=== PATIENT | male | born 1975 | race Caucasian/White ===

== ENCOUNTER 2019-06-07 10:21 | Emergency (ER) | payer OTHER ==
[2019-06-07] MEDS ORDERED: Ondansetron 4 MG/2 ML SDV IVPUSH ONE (12:43)
[2019-06-07] MEDS ORDERED: Sodium Chloride 0.9% 10 ML Syringe FLUSH PRN (12:43)
[2019-06-07] MEDS ORDERED: Sodium Chloride 0.9% 1,000 ML IV SCH (12:45)
[2019-06-07] MEDS ORDERED: Ketorolac 30 MG/ML SDV IVPUSH ONE (12:46)
[2019-06-07] MEDS ORDERED: HYDROmorphone 1 MG/ML Syringe IVPUSH ONE (12:46)
--- NOTE | 2019-06-07 14:00 | CT ---
CT abdomen and pelvis Technique: Multiple axial sections were obtained from above the dome of the diaphragm inferiorly through the pubic symphysis. Intravenous and oral contrast not utilized. Study has been performed as a ureteral stone protocol. Comparison: No prior abdominal imaging is available. Findings: Right kidney is swollen with dilated collecting system as well as dilated proximal ureter. Findings are caused by obstructing mid right ureteral stone measuring approximately 5.3 mm. No other abnormal calcifications are seen along the course of the ureters. No renal calculi are seen. Small portion of the visualized lung bases show nothing acute. Low-density lesion is seen within the right lobe of the liver compatible with cyst measuring 1.2 cm. Small hiatal hernia is seen. Spleen appears within normal limits. Adrenal glands show no nodule. Pancreas is within normal limits. Gallbladder contains no calcified gallstones. Aorta shows mild atherosclerotic calcification. No aneurysm is seen. No retroperitoneal adenopathy is noted. Numerous diverticuli are seen within the sigmoid colon with no inflammatory change seen to indicate diverticulitis. Appendix is seen which is normal in size. Bone window settings were reviewed which appear within normal limits for the patient's age. Impression: 1. Obstructing mid right ureteral stone measuring 5.3 mm. 2. Other findings believed to be incidental as described above. Diagnostic code #3
--- NOTE | 2019-06-07 15:28 | EDM.PDOC ---
ED HPI GENERAL MEDICAL PROBLEM - General Chief Complaint: Flank Pain Stated Complaint: KIDNEY PAIN Time Seen by Provider: 06/07/19 10:56 Source of Information: Reports: Patient History Limitations: Reports: No Limitations - History of Present Illness INITIAL COMMENTS - FREE TEXT/NARRATIVE: The patient presents with right flank pain that radiates to his right abdomen. This started a few hours ago. He had nausea and vomiting. He has no fever or chills. He has no chest pain or shortness of breath. He has no dysuria or hematuria. He has no history of kidney stones but he is worried that he has a kidney stone. He has no other medical problems. Onset: Sudden Duration: Hour(s): Location: Reports: Abdomen, Back (right flank) Quality: Reports: Sharp Severity: Severe Improves with: Reports: None Worsens with: Reports: None Associated Symptoms: Reports: Nausea/Vomiting. Denies: Chest Pain, Cough, Fever /Chills, Headaches, Shortness of Breath Flank Pain Score (Numeric/FACES): 10 - Related Data Allergies Allergy/AdvReac Type Severity Reaction Status Date / Time No Known Allergies Allergy Verified 06/07/19 13:43 Home Meds: Home Meds Hydrocodone/Acetaminophen [Hydrocodon-Acetaminophen 5-325] 1 - 2 each PO Q6HR PRN #20 tablet 06/07/19 [Rx] Lisinopril 06/07/19 [History] Ondansetron [Zofran ODT] 4 mg PO Q6H PRN #20 tab.dis 06/07/19 [Rx] Tamsulosin HCl [Flomax] 0.4 mg PO DAILY #7 cap.er.24h 06/07/19 [Rx] Past Medical History Cardiovascular History: Reports: Hypertension - Infectious Disease History Infectious Disease History: Reports: Chicken Pox - Past Surgical History HEENT Surgical History: Reports: ESVIN Social & Family History - Family History Family Medical History: Noncontributory - Tobacco Use Smoking Status *Q: Never Smoker - Caffeine Use Caffeine Use: Reports: Coffee - Recreational Drug Use Recreational Drug Use: No ED ROS GENERAL - Review of Systems Review Of Systems: See Below Constitutional: Reports: No Symptoms HEENT: Reports: No Symptoms Respiratory: Reports: No Symptoms Cardiovascular: Reports: No Symptoms Endocrine: Reports: No Symptoms GI/Abdominal: Reports: Abdominal Pain, Nausea, Vomiting. Denies: Diarrhea : Reports: No Symptoms Musculoskeletal: Reports: No Symptoms Skin: Reports: No Symptoms ED EXAM, GI/ABD - Physical Exam Exam: See Below Exam Limited By: No Limitations General Appearance: Alert, No Apparent Distress Ears: Normal External Exam Nose: Normal Inspection Head: Atraumatic, Normocephalic Neck: Normal Inspection Respiratory/Chest: No Respiratory Distress, Lungs Clear, Normal Breath Sounds Cardiovascular: Regular Rate, Rhythm, No Edema, No Murmur GI/Abdominal Exam: Soft, Non-Tender, No Organomegaly, No Mass Back Exam: CVA Tenderness (R) Extremities: Normal Inspection Neurological: Alert, Oriented, No Motor/Sensory Deficits Course - Vital Signs Last Recorded V/S: Last Vital Signs Temp Pulse 72 06/07/19 13:47 Resp 14 06/07/19 13:47 BP 168/91 H 06/07/19 13:47 Pulse Ox 100 06/07/19 13:47 - Orders/Labs/Meds Orders: Active Orders 24 hr Category Date Time Status Peripheral IV Care [RC] . DIRECTED Care 06/07/19 12:44 Active Sodium Chloride 0.9% [Normal Saline] 1,000 ml Med 06/07/19 12:45 Active IV ASDIRECTED Sodium Chloride 0.9% [Saline Flush] Med 06/07/19 12:43 Active 10 ml FLUSH ASDIRECTED PRN ED Antiemetic Medication Reflex [OM.PC] Stat Oth 06/07/19 12:44 Ordered Peripheral IV Insertion Adult [OM.PC] Stat Oth 06/07/19 12:43 Ordered Medication Orders Sodium Chloride (Normal Saline) 1,000 mls @ 125 mls/hr IV ASDIRECTED SHONDA Last Admin: 06/07/19 13:49 Dose: 125 mls/hr Sodium Chloride (Saline Flush) 10 ml FLUSH ASDIRECTED PRN PRN Reason: Keep Vein Open Last Admin: 06/07/19 13:49 Dose: 10 ml Labs: Laboratory Tests 06/07/19 06/07/19 06/07/19 Range/Units 13:31 13:31 14:47 WBC 14.64 H (4.23-9.07) K/mm3 RBC 4.60 L (4.63-6.08) M/mm3 Hgb 15.3 (13.7-17.5) gm/L Hct 43.6 (40.1-51.0) % MCV 94.8 H (79.0-92.2) fl MCH 33.3 H (25.7-32.2) pg MCHC 35.1 (32.2-35.5) g/dl RDW Std Deviation 40.4 (35.1-43.9) fL Plt Count 290 (163-337) K/mm3 MPV 10.4 (9.4-12.3) fl Neut % (Auto) 88.6 H (34.0-67.9) % Lymph % (Auto) 4.0 L (21.8-53.1) % [place] % (Auto) 7.1 (5.3-12.2) % Eos % (Auto) 0 L (0.8-7.0) Baso % (Auto) 0.2 (0.1-1.2) % Neut # (Auto) 12.97 H (1.78-5.38) K/mm3 Lymph # (Auto) 0.58 L (1.32-3.57) K/mm3 [place] # (Auto) 1.04 H (0.30-0.82) K/mm3 Eos # (Auto) 0.00 L (0.04-0.54) K/mm3 Baso # (Auto) 0.03 (0.01-0.08) K/mm3 Manual Slide Review Abnormal smear Sodium 142 (136-145) mEq/L Potassium 4.3 (3.5-5.1) mEq/L Chloride 102 (98-107) mEq/L Carbon Dioxide 25 (21-32) mEq/L Anion Gap 19.3 H (5-15) BUN 15 (7-18) mg/dL Creatinine 1.4 H (0.7-1.3) mg/dL Est Cr Clr Drug Dosing TNP Estimated GFR (MDRD) 55 (>60) mL/min BUN/Creatinine Ratio 10.7 L (14-18) Glucose 106 (74-106) mg/dL Calcium 10.1 (8.5-10.1) mg/dL Total Bilirubin 0.6 (0.2-1.0) mg/dL AST 21 (15-37) U/L ALT 33 (16-63) U/L Alkaline Phosphatase 57 (46-116) U/L Total Protein 7.9 (6.4-8.2) g/dl Albumin 4.7 (3.4-5.0) g/dl Globulin 3.2 gm/dL Albumin/Globulin Ratio 1.5 (1-2) Lipase 119 (73-393) U/L Urine Color Yellow (Yellow) Urine Appearance Slt cloudy H (Clear) Urine pH 6.0 (5.0-8.0) Ur Specific [place] 1.020 (1.005-1.030) Urine Protein 2+ H (Negative) Urine Glucose (UA) Negative (Negative) Urine Ketones 3+ H (Negative) Urine Occult Blood 3+ H (Negative) Urine Nitrite Negative (Negative) Urine Bilirubin 1+ H (Negative) Urine Urobilinogen 0.2 (0.2-1.0) Ur Leukocyte Esterase Negative (Negative) Urine RBC 50-75 H (0-5) /hpf Urine WBC 0-5 (0-5) /hpf Ur Squamous Epith Cells 0-5 (0-5) /hpf Urine Bacteria Rare (FEW) /hpf Urine Mucus Few (FEW) /hpf Meds: Medications Generic Name Dose Route Start Last Admin Trade Name Freq PRN Reason Stop Dose Admin Sodium Chloride 1,000 mls @ 125 mls/hr 06/07/19 12:45 06/07/19 13:49 Normal Saline IV 125 mls/hr ASDIRECTED SHONDA Administration Sodium Chloride 10 ml 06/07/19 12:43 06/07/19 13:49 Saline Flush FLUSH 10 ml ASDIRECTED PRN Administration Keep Vein Open Discontinued Medications Generic Name Dose Route Start Last Admin Trade Name Freq PRN Reason Stop Dose Admin Hydromorphone HCl 1 mg 06/07/19 12:46 06/07/19 13:31 Dilaudid IVPUSH 06/07/19 12:47 1 mg ONETIME ONE Administration Ketorolac Tromethamine 30 mg 06/07/19 12:46 06/07/19 13:30 Toradol IVPUSH 06/07/19 12:47 30 mg ONETIME ONE Administration Ondansetron HCl 4 mg 06/07/19 12:43 06/07/19 13:29 Zofran IVPUSH 06/07/19 12:44 Not Given ONETIME ONE - Re-Assessments/Exams Free Text/Narrative Re-Assessment/Exam: 06/07/19 15:25 I ordered an IV NS at 125mL/hr, zofran 4mg IV, dilaudid 1mg IV, toradol 30mg IV , labs, UA and a CT of her abdomen and pelvis without contrast. His WBC was elevated at 14.64. His anion gap is elevated at 19.3. His creatinine is elevated at 1.4. His UA shows blood. The CT of his abdomen and pelvis without contrast shows an obstructing mid right ureteral stone measuring 5.3mm. Other incidental findings. He feels better. He has no UTI. I will get him on something for pain, flomax and a strainer. Departure - Departure Time of Disposition: 15:30 Disposition: Home, Self-Care 01 Condition: Good Clinical Impression: Ureteric colic, Ureteral calculus, right, Kidney stone on right side - Discharge Information *PRESCRIPTION DRUG MONITORING PROGRAM REVIEWED*: No *COPY OF PRESCRIPTION DRUG MONITORING REPORT IN PATIENT TAYA: No Prescriptions: Hydrocodone/Acetaminophen [Hydrocodon-Acetaminophen 5-325] 1 - 2 each PO Q6HR PRN #20 tablet PRN Reason: Pain Ondansetron [Zofran ODT] 4 mg PO Q6H PRN #20 tab.dis PRN Reason: Nausea\vomiting Tamsulosin HCl [Flomax] 0.4 mg PO DAILY #7 cap.er.24h Referrals: Mounika Patel PA-C [Primary Care Provider] - 1 Week Omar Miller MD [Ordering Only Provider] - 1 Week Additional Instructions: Drink plenty of fluids. Take motrin or naprosyn as needed for pain. If that does not work, take hydrocodone. Take flomax daily. If you do not pass the stone by Sunday or Sunday call Dr Miller's office. Please return if you are worse. - My Orders Last 24 Hours: My Active Orders 06/07/19 12:43 Sodium Chloride 0.9% [Saline Flush] 10 ml FLUSH ASDIRECTED PRN Peripheral IV Insertion Adult [OM.PC] Stat 06/07/19 12:44 Peripheral IV Care [RC] . DIRECTED ED Antiemetic Medication Reflex [OM.PC] Stat 06/07/19 12:45 Sodium Chloride 0.9% [Normal Saline] 1,000 ml IV ASDIRECTED - Assessment/Plan Last 24 Hours: My Active Orders 06/07/19 12:43 Sodium Chloride 0.9% [Saline Flush] 10 ml FLUSH ASDIRECTED PRN Peripheral IV Insertion Adult [OM.PC] Stat 06/07/19 12:44 Peripheral IV Care [RC] . DIRECTED ED Antiemetic Medication Reflex [OM.PC] Stat 06/07/19 12:45 Sodium Chloride 0.9% [Normal Saline] 1,000 ml IV ASDIRECTED
== END 2019-06-07 15:54 | disposition home or self-care (01) ==
LOC: JD.ED 10:21
DX: N20.2 Calculus of kidney with calculus of ureter (principal); I10 Essential (primary) hypertension; Z79.899 Other long term (current) drug therapy
CPT/HCPCS: 36415; 74176; 80053; 81001; 83690; 85025; 96361; 96374; 96375; 99284; J1170; J1885; J7040

== ENCOUNTER 2020-07-02 23:47 | Emergency (ER) | payer BC ==
--- NOTE | 2020-07-03 00:33 | EDM.PDOCBH ---
ED HPI GENERAL MEDICAL PROBLEM - General Chief Complaint: Behavioral/Psych Stated Complaint: MH EVAL Time Seen by Provider: 07/02/20 23:55 Source of Information: Reports: Patient History Limitations: Reports: Intoxication - History of Present Illness INITIAL COMMENTS - FREE TEXT/NARRATIVE: This is a 44-year-old male. He is brought in by the police this evening because he or 1 of his family members called because he wants some help. He states he has suicidal tendencies but he has never attempted suicide in the past. He denies wanting to take pills or shoot himself. Apparently he and his have gone through some rough times lately and the has had chemotherapy. He does admit that he is an alcoholic and he would like to get better. The patient is a very poor historian and he is very difficult to get answers from. He tends to be very tangential and he also is very circular and his conversation without telling us anything. Spoke to the patient's and she states that he is an alcoholic. He has been depressed recently because of things at home and she is going through chemotherapy. He apparently got a little aggressive at home tonight and that is why the police were called. He did not hit her or hurt her but was threatening. He did not take an overdose of pills he did not attempt to hurt himself at home. - Related Data Allergies Allergy/AdvReac Type Severity Reaction Status Date / Time No Known Allergies Allergy Verified 07/02/20 23:57 Home Meds: Home Meds Lisinopril 15 mg PO DAILY 06/07/19 [History] Tamsulosin HCl [Flomax] 0.4 mg PO DAILY #7 cap.er.24h 06/07/19 [Rx] Past Medical History Cardiovascular History: Reports: Hypertension - Infectious Disease History Infectious Disease History: Reports: Chicken Pox - Past Surgical History HEENT Surgical History: Reports: ESVIN Social & Family History - Family History Family Medical History: Noncontributory - Caffeine Use Caffeine Use: Reports: Coffee ED ROS GENERAL - Review of Systems Review Of Systems: See Below Constitutional: Denies: Fever, Chills HEENT: Reports: No Symptoms Respiratory: Denies: Shortness of Breath, Cough Cardiovascular: Reports: No Symptoms Endocrine: Reports: No Symptoms GI/Abdominal: Denies: Abdominal Pain, Diarrhea, Nausea, Vomiting : Reports: No Symptoms Musculoskeletal: Reports: No Symptoms Skin: Reports: No Symptoms Neurological: Reports: No Symptoms Psychiatric: Reports: No Symptoms Hematologic/Lymphatic: Reports: No Symptoms ED EXAM, BEHAVIORAL HEALTH - Physical Exam Exam: See Below Exam Limited By: No Limitations General Appearance: Alert, WD/WN, No Apparent Distress Eye Exam: Bilateral Eye: Normal Inspection (Very bloodshot eyes bilaterally) Ears: Normal External Exam Throat/Mouth: Normal Voice, No Airway Compromise Head: Normocephalic Neck: Supple Respiratory/Chest: No Respiratory Distress, Lungs Clear, Normal Breath Sounds Cardiovascular: Regular Rate, Rhythm, No Murmur, Tachycardia GI/Abdominal: Soft, Non-Tender Back Exam: Normal Inspection, Full Range of Motion Extremities: Normal Inspection, Normal Range of Motion, No Pedal Edema Neurological: Alert, No Motor/Sensory Deficits, Other (He knows he is in the ER, he is not certain as to the date) Psychiatric: Alert, Flat Affect, Tangential Thoughts, Other (Has very circular thoughts and tangential thoughts and never actually tells you anything. You have to pin him down to get any information and that is even difficult.) Skin Exam: Warm, Dry COURSE, BEHAVIORAL HEALTH COMP - Course Vital Signs: Last Vital Signs Temp 97.0 F 07/02/20 23:53 Pulse 107 H 07/02/20 23:53 Resp 19 07/02/20 23:53 BP 126/93 H 07/02/20 23:53 Pulse Ox 95 07/02/20 23:53 Orders, Labs, Meds: Laboratory Tests 07/03/20 07/03/20 07/03/20 Range/Units 00:35 00:45 00:45 WBC 6.55 (4.23-9.07) K/mm3 RBC 4.42 L (4.63-6.08) M/mm3 Hgb 14.6 (13.7-17.5) gm/dl Hct 42.8 (40.1-51.0) % MCV 96.8 H (79.0-92.2) fl MCH 33.0 H (25.7-32.2) pg MCHC 34.1 (32.2-35.5) g/dl RDW Std Deviation 43.4 (35.1-43.9) fL Plt Count 415 H D (163-337) K/mm3 MPV 9.4 (9.4-12.3) fl Neut % (Auto) 51.1 (34.0-67.9) % Lymph % (Auto) 30.8 (21.8-53.1) % [place] % (Auto) 14.8 H (5.3-12.2) % Eos % (Auto) 2.3 (0.8-7.0) Baso % (Auto) 0.8 (0.1-1.2) % Neut # (Auto) 3.35 (1.78-5.38) K/mm3 Lymph # (Auto) 2.02 (1.32-3.57) K/mm3 [place] # (Auto) 0.97 H (0.30-0.82) K/mm3 Eos # (Auto) 0.15 (0.04-0.54) K/mm3 Baso # (Auto) 0.05 (0.01-0.08) K/mm3 Sodium 142 (136-145) mEq/L Potassium 4.3 (3.5-5.1) mEq/L Chloride 104 (98-107) mEq/L Carbon Dioxide 22 (21-32) mEq/L Anion Gap 20.3 H (5-15) BUN 14 (7-18) mg/dL Creatinine 0.9 (0.7-1.3) mg/dL Est Cr Clr Drug Dosing 106.40 mL/min Estimated GFR (MDRD) > 60 (>60) mL/min BUN/Creatinine Ratio 15.6 (14-18) Glucose 92 (74-106) mg/dL Calcium 9.0 (8.5-10.1) mg/dL Total Bilirubin 0.3 (0.2-1.0) mg/dL AST 28 (15-37) U/L ALT 39 (16-63) U/L Alkaline Phosphatase 61 (46-116) U/L Total Protein 7.8 (6.4-8.2) g/dl Albumin 4.3 (3.4-5.0) g/dl Globulin 3.5 gm/dL Albumin/Globulin Ratio 1.2 (1-2) Urine Opiates Screen Negative (IGPCLZ=319) Ur Buprenorphine Scrn Negative (CUTOFF=10) Ur Oxycodone Screen Negative (WCP5IE=524) Urine Methadone Screen Negative (NAP8OE=354) Ur Propoxyphene Screen Negative (OMJSMK=200) Ur Barbiturates Screen Negative (FJVRVF=663) Ur Tricyclics Screen Negative (UPWKAA=644) Ur Phencyclidine Scrn Negative (CUTOFF=25) Ur Amphetamine Screen Negative (ACXZKV=298) U Methamphetamines Scrn Negative (VBUGXE=094) U Benzodiazepines Scrn Negative (KZUCNU=970) U Cocaine Metab Screen Negative (HEETAK=382) U Marijuana (THC) Screen Negative (CUTOFF=50) Ethyl Alcohol 0.34 (0.00) gm% Discharge vs Psych Eval/Treatment:: 07/03/20 01:37 I spoke to the patient regarding his blood results and urine drug screen and his alcohol level of 0.34. The patient states he is not suicidal. He does want help but as he tells me many many times he is much smarter than everybody else and therefore nobody else can help him. I will give him the number to [facility] for evaluation and possible treatment. It is up to him to decide if he wants help with his alcoholism. 07/03/20 01:46 Patient has walked out of the ER. Since he is not suicidal and is only drunk we have tried to bring him back into the ER so we can find a ride for him home and have someone be responsible for him at home. We tried to get the patient to sign AGAINST MEDICAL ADVICE but he refused. He is refusing to come back into the ER. Again he is not suicidal he is just intoxicated. He states he is going to walk home. Departure - Departure Time of Disposition: 01:49 Disposition: Against Medical Advice 07 Condition: Fair Clinical Impression: Alcohol abuse Acute alcohol intoxication Qualifiers: Complication of substance-induced condition: uncomplicated Qualified Code(s): F10.920 - Alcohol use, unspecified with intoxication, uncomplicated - Discharge Information *PRESCRIPTION DRUG MONITORING PROGRAM REVIEWED*: Not Applicable *COPY OF PRESCRIPTION DRUG MONITORING REPORT IN PATIENT TAYA: Not Applicable Instructions: Alcohol Use Disorder Referrals: PCP,None [Primary Care Provider] - Forms: ED Department Discharge Additional Instructions: The patient walked out of the ER and refused to return. I was going to provide him information for [facility] as an outpatient for his alcohol use disorder. We did call the police to let them know that the patient left the ER and that he was intoxicated. So notified his leaving a voicemail that he had left the ER AGAINST MEDICAL ADVICE there was nothing we could hold him on since he was not suicidal. Sepsis Event Note (ED) - Evaluation Sepsis Screening Result: No Definite Risk - Focused Exam Vital Signs: Vital Signs Temp Pulse Resp BP Pulse Ox 07/02/20 23:53 97.0 F 107 H 19 126/93 H 95
== END 2020-07-03 01:47 | disposition left against medical advice (07) ==
LOC: JD.ED 23:47
DX: F10.120 Alcohol abuse with intoxication, uncomplicated (principal); I10 Essential (primary) hypertension; R00.0 Tachycardia, unspecified; Z79.899 Other long term (current) drug therapy
CPT/HCPCS: 36415; 80053; 80306; 80307; 85025; 99283; 99284